=== PATIENT | male | born 1955 | race African-American/Black ===

== ENCOUNTER 2017-03-21 07:56 | Emergency (ER) | payer OTHER ==
[2017-03-21 09:10] LABS: #Eosinphils 0.1 thou/uL (0.0-0.7); #Lymphocytes 1.7 thou/uL (1.20-3.40); #Monocytes 0.4 thou/uL (0.11-0.59); #Neutrophils 4.4 thou/uL (1.40-6.50); %Basophils 0.8 % (0.0-1.0); %Eosinophils 1.8 % (0.0-10.0); %Lymphocytes 25.7 % (21.0-51.0); %Monocytes 5.3 % (0.0-10.0); %Neutrophils 66.4 % (42.0-75.0); Hemoglobin 16.2 g/dL (14.0-18.0); Mean Corpuscular Hemoglobin 26.5 pg (27.0-31.0); Mean Corpuscular Volume 80.3 fl (80.0-94.0); Platelet Count 302 thou/uL (130-400); RBC Distribution Width 12.9 % (11.5-14.5); Red Blood Cell (RBC) Count 6.12 mill/uL (4.70-6.10); White Blood Cell (WBC) Count 6.6 thou/uL (4.8-10.8)
--- NOTE | 2017-03-21 09:15 | ULT ---
RIGHT UPPER QUADRANT ULTRASOUND: Date: 03/21/17 PROVIDED CLINICAL HISTORY: Epigastric pain. FINDINGS: The liver demonstrates no mass or intrahepatic biliary ductal dilatation. The common duct is mildly p rominent, measuring about 8.0 mm. The gallbladder is not visualized, compatible with provided clinica l history of prior cholecystectomy. Visualized portions of the pancreas appear normal. The right kidn ey demonstrates no hydronephrosis or mass. IMPRESSION: Mildly prominent common duct, likely on the basis of post cholecystectomy status and patient age. Cor relation with laboratory values to exclude biliary obstructive change is recommended. POS: [facility]
[2017-03-21 09:20] LABS: ALT (SGPT) 29 U/L (8-55); AST (SGOT) 19 U/L (5-34); Albumin 4.1 g/dL (3.4-4.8); Alkaline Phosphatase 66 U/L (40-150); Anion Gap 13 mmol/L (10-20); BUN (Urea Nitrogen) 8 mg/dL (8.4-25.7); Bilirubin, Total 0.4 mg/dL (0.2-1.2); Calc. Creatinine Clearance 0 mL/min (70-130); Calcium 9.9 mg/dL (7.8-10.44); Carbon Dioxide 29 mmol/L (23-31); Chloride 99 mmol/L (98-107); Estimated GFR-MDRD 83; Globulin 3.7 g/dL (2.4-3.5); Glucose 204 mg/dL (80-115); Lipase 76 U/L (8-78); Protein, Total 7.8 g/dL (5.8-8.1); Sodium 137 mmol/L (136-145)
[2017-03-21 10:21] LABS: Bilirubin Negative (Negative); Blood, Urine Negative (Negative); Clarity CLEAR (Clear); Glucose, Urine (Dipstick) Negative (Negative); Leukocyte Negative (Negative); Nitrite Negative (Negative); Protein, Urine (Dipstick) 100 mg/dL (Neg-Trace); Specific Gravity, Urine 1.015 (1.002-1.036); Urobilinogen 0.2 mg/dL (0.2-1.0); pH, Urine 8.5 (5.0-9.0)
[2017-03-21 10:24] LABS: Bacteria/HPF None Seen HPF (None Seen); Hyaline Casts/LPF 0-3 HYALINE CAST LPF (0-3 Hyaline); Pathc Cast-AUWi Flag 0.27 (0-2.49); RBC/HPF 0-3 HPF (0-3); Squamous Epithelial None Seen HPF (0-3); WBC/HPF 0-3 HPF (0-3)
[2017-03-21] MEDS ORDERED: Lidocaine Viscous Sol 2% 15 ml UD Cup ONE (10:53)
[2017-03-21] MEDS ORDERED: Mag-Al 1200 mg/1200 mg/30 ML UDCUP ONE (10:53)
[2017-03-21] MEDS ORDERED: diphenhydrAMINE 25 MG CAP ONE (11:15)
[2017-03-21] MEDS ORDERED: Acetaminophen 325 MG TAB ONE (11:15)
== END 2017-03-21 11:29 | disposition home or self-care (01) ==
LOC: ERS 07:56
DX: K29.70 Gastritis, unspecified, without bleeding (principal); K20.9 Esophagitis, unspecified; I10 Essential (primary) hypertension; F32.9 Major depressive disorder, single episode, unspecified
CPT/HCPCS: 76705; 80053; 81003; 81015; 83690; 85025

== ENCOUNTER 2017-04-06 02:46 | Observation (INO) | payer MEDICARE, OTHER ==
[2017-04-06] MEDS ORDERED: Morphine 4 MG/ML Carpuject ONE ×2 (03:01→05:23)
[2017-04-06] MEDS ORDERED: Lidocaine Viscous Sol 2% 15 ml UD Cup ONE (03:02)
[2017-04-06] MEDS ORDERED: Pantoprazole 40 MG VIAL ONE (03:02)
[2017-04-06] MEDS ORDERED: Mag-Al 1200 mg/1200 mg/30 ML UDCUP ONE (03:02)
[2017-04-06 03:47] LABS: #Basophils 0.1 thou/uL (0.0-0.2); #Eosinphils 0.2 thou/uL (0.0-0.7); #Lymphocytes 3.3 thou/uL (1.20-3.40); #Monocytes 0.5 thou/uL (0.11-0.59); #Neutrophils 5.7 thou/uL (1.40-6.50); %Basophils 0.6 % (0.0-1.0); %Eosinophils 1.8 % (0.0-10.0); %Lymphocytes 33.7 % (21.0-51.0); %Monocytes 5.5 % (0.0-10.0); %Neutrophils 58.4 % (42.0-75.0); Hemoglobin 15.5 g/dL (14.0-18.0); Mean Corpuscular HGB CONC 34.3 g/dL (32.0-36.0); Mean Corpuscular Hemoglobin 26.9 pg (27.0-31.0); Mean Corpuscular Volume 78.4 fl (80.0-94.0); Mean Platelet Volume 8.1 fL (7.4-10.4); Platelet Count 342 thou/uL (130-400); RBC Distribution Width 12.7 % (11.5-14.5); Red Blood Cell (RBC) Count 5.76 mill/uL (4.70-6.10); White Blood Cell (WBC) Count 9.7 thou/uL (4.8-10.8)
[2017-04-06 04:08] LABS: ALT (SGPT) 54 U/L (8-55); AST (SGOT) 29 U/L (5-34); Albumin 4.1 g/dL (3.4-4.8); Alkaline Phosphatase 65 U/L (40-150); Anion Gap 12 mmol/L (10-20); BUN (Urea Nitrogen) 9 mg/dL (8.4-25.7); Bilirubin, Total 0.3 mg/dL (0.2-1.2); Calc. Creatinine Clearance 0 mL/min (70-130); Calcium 9.8 mg/dL (7.8-10.44); Carbon Dioxide 29 mmol/L (23-31); Chloride 101 mmol/L (98-107); Estimated GFR-MDRD Greater than 90; Globulin 3.6 g/dL (2.4-3.5); Glucose 165 mg/dL (80-115); Lipase 241 U/L (8-78); Potassium 3.8 mmol/L (3.5-5.1); Protein, Total 7.7 g/dL (5.8-8.1); Sodium 138 mmol/L (136-145)
[2017-04-06] MEDS ORDERED: Ondansetron HCl/PF 4 MG/2 ML Vial IVP PRN ×2 (06:10→18:41)
[2017-04-06] MEDS ORDERED: HYDROcodone/Acetaminophen 5/325 mg Tablet PO PRN ×2 (06:10)
[2017-04-06] MEDS ORDERED: Acetaminophen 325 MG TAB PO PRN (06:10)
[2017-04-06] MEDS ORDERED: Ondansetron ODT 4 MG TAB SL PRN (06:10)
[2017-04-06] MEDS ORDERED: Morphine 5 MG/ML SYRINGE SLOW IVP PRN ×2 (06:11→18:40)
[2017-04-06] MEDS: Sodium Chloride 0.9% 1,000 ML IV SCH ×3 (06:33→21:03)
[2017-04-06 06:36] VITALS: BMI 21.7
[2017-04-06] MEDS ORDERED: SOFOSBUVIR PO SCH (09:00)
[2017-04-06] MEDS ORDERED: LEDIPASVIR PO SCH (09:00)
[2017-04-06] MEDS ORDERED: Morphine 5 MG/ML SYRINGE SLOW IVP SCH (13:00)
--- NOTE | 2017-04-06 15:22 | HP ---
DATE OF ADMISSION: 04/06/2017 ADMITTING PHYSICIAN: Nils Turcios M.D. PRIMARY CARE PHYSICIAN: Unknown. CHIEF COMPLAINT: Abdominal pain. HISTORY OF PRESENT ILLNESS: The patient is a pleasant 62-year-old gentleman who presents to the [facility] department complaining of upper abdominal pain for approximately 2-3 weeks. The patient was se en here 03/21/2017 with the same complaint and he was sent home after given pain medications. He has seen his PCP and power operator before. The patient had an EGD performed approximately 4 months ago which was reportedly normal except for diagnosis of possible H. pylori. He has been on triple a ntibiotic therapy for the H. pylori. He denies diaphoresis, nausea, vomiting. He does report occasi onal feelings of early satiety. Denies diarrhea or bright red blood per rectum or constipation. PAST MEDICAL HISTORY: Significant for hypertension and possible pancreatitis in the past. REVIEW OF SYSTEMS: The following complete review of systems was negative, unless otherwise mentioned in the HPI or below: Constitutional: Weight loss or gain, sense of well-being, ability to conduct usual activities, exercise tolerance. Skin/Breast: Rash, itching, changes in hair growth or loss, n ail changes, breast lumps, tenderness, swelling, nipple discharge. Eyes: Vision, double vision, tea ring, blind spots, pain. ENT/Mouth: Headaches (location, time of onset, duration, precipitating fac tors), vertigo, lightheadedness, injury. Vision, double vision, tearing, blind spots, pain, nose blee ding, colds, obstruction, discharge, dental difficulties, gingival bleeding, dentures, neck stiffness , pain, tenderness, masses in thyroid or other areas. Cardiovascular: Precordial pain, substernal d istress, palpitations, syncope, dyspnea on exertion, orthopnea, nocturnal paroxysmal dyspnea, edema, cyanosis, hypertension, heart murmurs, varicosities, phlebitis, claudication. Respiratory: Pain, sh ortness of breath, wheezing, stridor, cough, hemoptysis, fever or night sweats. Gastrointestinal: P oor appetite, dysphagia, indigestion, abdominal pain, heartburn, eructation, nausea, vomiting, hemate mesis, jaundice, constipation, or diarrhea, abnormal stools (feng-colored, tarry, bloody, greasy, fou l smelling), flatulence, hemorrhoids, recent changes in bowel habits. Genitourinary: Urgency, frequ ency, dysuria, nocturia, hematuria, polyuria, oliguria, unusual (or change in) color of urine, stones , hesitancy, change in size of stream, dribbling, acute retention or incontinence, libido, potency. Musculoskeletal: Pain, swelling, redness or heat of muscles or joints, limitation, of motion, muscul ar weakness, atrophy, cramps. Neurologic/Psychiatric: Convulsions, paralyses, tremor, incoordinatio n, paresthesias, difficulties with memory of speech, sensory or motor disturbances, or muscular coord ination (ataxia, tremor), emotional problems, anxiety, depression, previous psychiatric care, unusual perceptions, hallucinations. Allergy/Immunologic: Skin rash, anemia, bleeding tendency, polydipsia, polyuria, intolerance to heat or cold. HOME MEDICATIONS: Include enalapril 20 mg every day, amoxicillin 500 mg 2 tabs b.i.d., Bentyl 10 mg t.i.d., Biaxin 500 mg 1 tab b.i.d. ALLERGIES: No known drug allergies. SOCIAL HISTORY: He is a nonsmoker, author, artist. No drugs or alcohol at this time. PHYSICAL EXAMINATION: VITAL SIGNS: Blood pressure 144/102, pulse 71, respirations 18, temperature 98.0. Pain 5/10 and sat ting 95% on room air. GENERAL: He is in no acute distress, pleasant, cooperative, coherent. HEENT: Normocephalic, atraumatic. Eyes: PERRL. Extraocular muscles intact. ENT: Ear exam normal , pharynx exam normal, tonsil exam normal, mouth exam normal. NECK: Trachea midline. No meningeal signs. No tenderness. Supple, full range of motion. CHEST: No rhonchi, no wheezing. Clear to auscultation. CARDIAC: Regular rate and rhythm. There is a grade 3/6 holosystolic murmur. ABDOMEN: Nontender, nondistended. Positive bowel sounds. EXTREMITIES: No clubbing, cyanosis or edema. NEUROLOGIC: Full range of motion of all extremities. Cranial nerves intact. No focal deficits. LABORATORY IMAGES: CBC shows a white count of 9.7, hemoglobin 15.5, hematocrit 45.1, platelets 342. Chem-7 shows sodium of 138, potassium 3.8, chloride 101, CO2 29, BUN 9, creatinine 0.97, glucose of 165, calcium 9.8, AST 29, ALT 54, albumin 4.1, lipase 241. The patient had an abdominal ultrasound p erformed 16 days ago which showed prominent common duct, likely on the basis of a post cholecystectom y. ASSESSMENT AND PLAN: 1. Acute pancreatitis. 2. Hypertension. PLAN: The patient will be admitted. At this time, he does not have nausea, vomiting. We will do cl ear liquids and advance as tolerated. Pain control as needed. IV fluid resuscitation. We will do S CD devices to prevent against DVT development.
[2017-04-06] MEDS: traMADol HCl 50 MG TAB PO PRN (15:43)
[2017-04-06] MEDS ORDERED: Mag-Al 1200 mg/1200 mg/30 ML UDCUP PO PRN (18:09)
[2017-04-06] MEDS ORDERED: Pantoprazole 40 MG VIAL IVP SCH ×2 (18:15→21:00)
[2017-04-06] MEDS: HYDROcodone/Acetaminophen 5/325 mg Tablet PO PRN (18:57)
[2017-04-07] MEDS: Sodium Chloride 0.9% 1,000 ML IV SCH ×3 (02:49→18:53)
[2017-04-07] MEDS: HYDROcodone/Acetaminophen 5/325 mg Tablet PO PRN ×4 (04:11→20:26)
[2017-04-07 05:02] LABS: #Basophils 0.1 thou/uL (0.0-0.2); #Eosinphils 0.1 thou/uL (0.0-0.7); #Lymphocytes 2.5 thou/uL (1.20-3.40); #Monocytes 0.5 thou/uL (0.11-0.59); #Neutrophils 4.2 thou/uL (1.40-6.50); %Basophils 0.8 % (0.0-1.0); %Eosinophils 1.8 % (0.0-10.0); %Lymphocytes 33.7 % (21.0-51.0); %Monocytes 6.5 % (0.0-10.0); %Neutrophils 57.1 % (42.0-75.0); Hemoglobin 14.1 g/dL (14.0-18.0); Mean Corpuscular HGB CONC 33.3 g/dL (32.0-36.0); Mean Corpuscular Hemoglobin 26.4 pg (27.0-31.0); Mean Corpuscular Volume 79.3 fl (80.0-94.0); Platelet Count 295 thou/uL (130-400); RBC Distribution Width 12.8 % (11.5-14.5); Red Blood Cell (RBC) Count 5.33 mill/uL (4.70-6.10); White Blood Cell (WBC) Count 7.3 thou/uL (4.8-10.8)
[2017-04-07 05:23] LABS: Anion Gap 10 mmol/L (10-20); BUN (Urea Nitrogen) 7 mg/dL (8.4-25.7); Calc. Creatinine Clearance 90 mL/min (70-130); Calcium 8.8 mg/dL (7.8-10.44); Carbon Dioxide 28 mmol/L (23-31); Chloride 106 mmol/L (98-107); Estimated GFR-MDRD Greater than 90; Glucose 105 mg/dL (80-115); Potassium 3.8 mmol/L (3.5-5.1); Sodium 140 mmol/L (136-145)
[2017-04-07] MEDS: Pantoprazole 40 MG VIAL IVP SCH ×2 (08:54→20:27)
--- NOTE | 2017-04-07 10:13 | PDOC.PN ---
- Subjective Encounter Start Date: 04/07/17 Encounter Start Time: 08:30 Subjective: continued abd discomfort with feelings of satiety - Objective Resuscitation Status: Resuscitation Status FULL:Full Resuscitation MAR Reviewed: Yes Vital Signs & Weight: Vital Signs (12 hours) Temp Pulse Resp BP BP Pulse Ox 04/07/17 08:53 125/69 04/07/17 08:00 98.0 F 55 L 18 125/69 99 04/07/17 04:00 97.9 F 57 L 16 137/80 97 04/06/17 23:32 98.2 F 60 14 122/72 97 Weight Admit Weight 164 lb 14.4 oz Weight 164 lb 14.4 oz I&O: 04/06/17 04/07/17 04/08/17 06:59 06:59 06:59 Intake Total 1736 Balance 1736 Result Diagrams: 04/07/17 04:36 04/07/17 04:36 Phys Exam - Physical Examination Constitutional: NAD HEENT: PERRLA, moist MMs, sclera anicteric Neck: supple, full ROM Respiratory: no wheezing, clear to auscultation bilateral Cardiovascular: RRR, no significant murmur Gastrointestinal: soft tender with palpation Musculoskeletal: no edema Neurological: non-focal, moves all 4 limbs Psychiatric: normal affect, A&O x 3 Skin: no rash Dx/Plan (1) Acute on chronic pancreatitis Code(s): K85.90 - ACUTE PANCREATITIS WITHOUT NECROSIS OR INFECTION, UNSP; K86.1 - OTHER CHRONIC PANCREATITIS Status: Acute (2) HTN (hypertension) Code(s): I10 - ESSENTIAL (PRIMARY) HYPERTENSION Status: Chronic - Plan cont current plan of care, plan discussed w/ family Obtained GI consult today. Abd CT pending, Pepcid added, abx for Arlen * .
--- NOTE | 2017-04-07 11:17 | CT ---
PRE AND POSTCONTRAST ENHANCED CT IMAGES OF ABDOMEN: Date: 04/07/17 HISTORY: Recurrent pancreatitis. TECHNIQUE: Pre and postcontrast enhanced CT images of abdomen obtained. Coronal reconstruction images performed. FINDINGS: The lung bases are unremarkable. No evidence of free intraperitoneal air is seen. The liver and spleen are unremarkable. Adrenal glands are unremarkable. Bilateral renal cortical cyst s are present. There is fat stranding and inflammatory change surrounding the pancreatic head and portions of the pa ncreatic body. This is compatible with changes of pancreatitis. No definite evidence of pancreatic ma sses seen. The portal veins, as well as superior mesenteric artery and superior mesenteric vein are unremarkable . The splenic artery and splenic vein are patent. IMPRESSION: Fat stranding surrounding the pancreatic head and portions of the pancreatic body. This is compatible with changes of pancreatitis. No evidence of pseudocysts or significant pancreatic necrosis is prese nt. POS: [facility]
--- NOTE | 2017-04-07 12:29 | CON ---
DATE OF CONSULTATION: 04/07/2017 GI INPATIENT CONSULTATION NOTE REQUESTING PHYSICIAN: Nils Turcios M.D. REASON FOR CONSULTATION: Abdominal pain and pancreatitis. HISTORY OF PRESENT ILLNESS: Mr. Sawnson is a very pleasant 62-year-old -[place] gentleman. He is a patient of Dr. Lyle for Gastroenterology. He was admitted to the hospital yesterday wit h acute exacerbation of some ongoing epigastric pain. He says he has been dealing with this for the past several weeks. There is not a lot of associated nausea, no vomiting. He does have some early s atiety. There is no change in bowel habits either diarrhea or constipation. There is no melena or h ematochezia. Really, just been dealing with the pain. He says his appetite is good, but whenever he eats, the pain is exacerbated, it remains in the epigastrium. He has undergone some recent evaluati on with Dr. Lyle within the past few months. He reports that he had an EGD and colonoscopy. On EGD, he says he was diagnosed with gastritis and H. pylori and on colonoscopy, he said he had two sm all polyps which were completely removed. I do not have those primary reports for my review at this time. He got started on triple therapy for H. pylori. It is unclear whether he is actually receivin g acid suppression or not, but he says he is in the middle of taking a course of amoxicillin and clar ithromycin. Notably, he is also being treated for hepatitis C concurrently. He says he has 2 months into a 12-week treatment course of Harvoni. Interestingly, he says that about 6 years ago in [place], he had an episode of pancreatitis. He says at that time, there was some concern for possible pancreatic malignancy. He underwent a cholecystec mary and may be other procedures at that time. In the end, it was decided he did not have pancreatic malignancy and he did not undergo Whipple surgery which had been suggested. In the meantime, he coby lly has not had much chronic gastrointestinal symptomatology until there is some more recent onset of abdominal pain. Note, he had an abdominal ultrasound here within the past couple of weeks, which sh owed normal appearing liver, absent gallbladder and common bile duct 8 mm, which is not surprising af ter a cholecystectomy. On presentation at this time, he does have a lipase elevation to 241, which i s mild, but elevated and his LFTs are normal. He has been hemodynamically stable and he is toleratin g clear liquids this morning. REVIEW OF SYSTEMS: Full review of systems including constitutional, head, eyes, ears, nose, throat, GI, , cardiovascular, respiratory, musculoskeletal, and neurologic systems is negative except as no jose in the HPI. PAST MEDICAL HISTORY: Hepatitis C, currently being treated with Harvoni, hypertension, cholecystecto my about 6 years ago, Helicobacter pylori recently diagnosed on EGD, currently being treated, colon p olyps, recently removed on colonoscopy. ALLERGIES: No known drug allergies. OUTPATIENT MEDICATIONS: Enalapril, amoxicillin, clarithromycin, Bentyl, Harvoni. SOCIAL HISTORY: No smoking, alcohol, or drug abuse. FAMILY HISTORY: Noncontributory. PHYSICAL EXAMINATION: VITAL SIGNS: Temperature 98.0, pulse 55, blood pressure 125/69, 99% oxygen saturation on room air. GENERAL: A 62-year-old gentleman sitting up in bed comfortably in no acute distress. MENTAL: Alert and fully oriented, pleasant, conversational, gives a detailed coherent history. SKIN: No jaundice, no rashes were palpable. EYES: No scleral icterus. Extraocular movements intact. ENT: Mucous membranes moist, no oral lesions. LYMPH: No submandibular or supraclavicular lymphadenopathy. THYROID: Nontender to palpation. HEART: Regular rate and rhythm. LUNGS: Clear to auscultation bilaterally. ABDOMEN: Bowel sounds are present, soft, some mild tenderness to palpation in the epigastrium, but n o guarding or rebound tenderness. No masses or organomegaly appreciated. EXTREMITIES: No peripheral edema. VESSELS: Radial pulses 2+ bilaterally. NEUROLOGIC: Cranial nerves II-XII intact bilaterally. No focal deficits. LABORATORY STUDIES: WBC 7.3, hemoglobin 14.1, platelets 295, sodium 140, potassium 3.8, BUN 7, creat inine 0.90, and glucose 105. LFTs normal with total bilirubin 0.3, alkaline phosphatase 65, AST 29, ALT 54, and albumin 4.1. UA negative. Lipase elevated at 241. IMAGING STUDIES: Recent abdominal ultrasound on 03/21/2017 showed absent gallbladder, mildly promine nt common bile duct of 8 mm, normal liver. The patient does not recall having any recent CT imaging. ASSESSMENT AND PLAN: 1. Epigastric pain, acute on chronic. 2. Mild pancreatitis, recurrent. The patient does indeed have a mild lipase elevation and his sympt omatology is somewhat suggestive of mild chronic pancreatitis with intermittent exacerbations. Clini vaibhav, he is very stable and all labs are favorable. There was this prior issue with the thought annamarie t he might have a pancreatic mass 6 years ago in [place], but obviously this did not represent pancre atic cancer at least at that time. I think given these recurrent episodes though, he should have leslie e better imaging of the pancreas. We will go ahead and order a CT of the abdomen, pancreatic protoco l to assess for structural abnormalities. Regarding this acute episode, again lab parameters and cli nical status are all very favorable. He is tolerating clear liquids. Diet could be advanced as hemanth rated after the CT. 3. Helicobacter pylori infection. This was evidently diagnosed on recent esophagogastroduodenoscopy . It is unclear whether he had been taking proton pump inhibitor along with these antibiotics. Wojosé miguel d recommend adding twice daily PPI while he finishes out his antibiotics. He should probably just st art all of this over for a 2 week course from this time. 4. Hepatitis C infection. The patient says he has 2 months into a planned 12-week treatment with Alberto rvoni. Note his LFTs are all normal. Harvoni needs to be continued without missing doses, so I do r ecommend that it would be given once daily while here. Note that Harvoni would not be expected to ca use or induce an episode of pancreatitis. Thank you for the consultation. We will see what the CT shows. Dr. Lyle is likely returning to [place].
[2017-04-07] MEDS ORDERED: ISOVUE-370 76%-LOCM 1 ML ONE (14:34)
[2017-04-07] MEDS: Famotidine 20 MG TAB PO SCH (20:25)
[2017-04-08] MEDS ORDERED: hydrALAZINE 20 MG/ML VIAL SLOW IVP PRN (00:07)
[2017-04-08] MEDS: traMADol HCl 50 MG TAB PO PRN (07:32)
[2017-04-08] MEDS: Pantoprazole 40 MG VIAL IVP SCH (09:14)
[2017-04-08] MEDS: Famotidine 20 MG TAB PO SCH (09:14)
[2017-04-08] MEDS: Sodium Chloride 0.9% 1,000 ML IV SCH (09:15)
[2017-04-08 09:55] LABS: ALT (SGPT) 47 U/L (8-55); AST (SGOT) 28 U/L (5-34); Alkaline Phosphatase 73 U/L (40-150); Anion Gap 13 mmol/L (10-20); BUN (Urea Nitrogen) 8 mg/dL (8.4-25.7); Bilirubin, Total 0.5 mg/dL (0.2-1.2); Calc. Creatinine Clearance 79 mL/min (70-130); Calcium 9.7 mg/dL (7.8-10.44); Carbon Dioxide 26 mmol/L (23-31); Chloride 100 mmol/L (98-107); Estimated GFR-MDRD 89; Globulin 3.7 g/dL (2.4-3.5); Glucose 215 mg/dL (80-115); Lipase 27 U/L (8-78); Potassium 3.6 mmol/L (3.5-5.1); Protein, Total 7.7 g/dL (5.8-8.1); Sodium 135 mmol/L (136-145)
[2017-04-08 12:38] VITALS: BP 164/98; TEMP 98.2
--- NOTE | 2017-04-08 21:11 | DIS ---
DATE OF ADMISSION: 04/06/2017 DATE OF DISCHARGE: 04/08/2017 PRIMARY CARE PHYSICIAN: Rodríguez Babin MD PRIMARY GED PREPARATION TEACHER: Mai Lyle M.D. CONSULTATIONS: Gastroenterology, Dr. Martin De La Torre. DISCHARGE DIAGNOSES: 1. Acute pancreatitis. 2. History of pancreatitis. 3. History of hepatitis C, currently on treatment with Harvoni. 4. Hypertension. DISCHARGE MEDICATIONS: Resume home medications as previously and now enalapril 20 mg daily and Harvo ni 1 tablet daily and tramadol 50 mg q.i.d. p.r.n., Protonix 40 mg p.o. b.i.d. and resume home medica tions of clarithromycin 500 mg p.o. b.i.d. for 2 weeks and amoxicillin 1000 mg p.o. b.i.d. for 2 week s. Please note he was given prescriptions for Protonix, clarithromycin and amoxicillin all of are ag ain for 2 weeks as it was unclear if he was taking Protonix with his antibiotics prior to admission. PROCEDURES DONE IN THE HOSPITAL: Include CT scan of the abdomen. ADMISSION HISTORY: Mr. Swanson is a pleasant 62-year-old male with known history of chronic pancreat itis as well as hepatitis C on Harvoni who presented to the emergency room with complaints of abdomin al pain. Upon presentation, his lipase was 241 and he was admitted with a presumptive diagnosis of a cute pancreatitis. Please see admission history for further details. HOSPITAL COURSE: Gastroenterology was consulted and Dr. De La Torre saw the patient. He recommended gettin g a CT scan of his abdomen, which was done which showed fat stranding surrounding the pancreatic head and portions of the pancreatic body compatible with pancreatitis. The patient had improvement in hi s symptoms with IV fluids and n.p.o. status. By the time of discharge, his lipase was improved from 241 to 27 and he is able to tolerate oral food. Dr. De La Torre saw the patient and recommended that he restart his treatment for H. pylori, which was diagn osed as an outpatient. He was given prescription for all of the treatment. Medications to finish 2 weeks of treatment. He is instructed to follow up with his primary clinical data manager Dr. Lyle as an outpatient. He was seen and examined prior to discharge. PHYSICAL EXAMINATION: Include, VITAL SIGNS: Temperature 98.2, pulse of 64, respirations 16, saturating 98% on room air, blood press ure 164/98. GENERAL: No acute distress, sitting up in bed. CHEST: Clear to auscultation. CARDIOVASCULAR: Rate and rhythm is regular. ABDOMEN: Soft, nontender, nondistended. LABORATORY EXAMINATION: Serum chemistries unremarkable except for blood sugar of 215, serum chemistr ies are unremarkable. He will follow up with his primary care physician in 5 to 7 days and his clinical data manager in 2 to 3 days for acute pancreatitis followup.
--- NOTE | 2017-04-13 17:28 | EKG ---
Test Reason : Blood Pressure : / mmHG Vent. Rate : 066 BPM Atrial Rate : 066 BPM P-R Int : 166 ms QRS Dur : 112 ms QT Int : 414 ms P-R-T Axes : 081 -47 027 degrees QTc Int : 434 ms Normal sinus rhythm with sinus arrhythmia Incomplete right bundle branch block Left anterior fascicular block Moderate voltage criteria for LVH, may be normal variant Cannot rule out Septal infarct , age undetermined Left axis deviation Abnormal ECG Confirmed by YAYA ALFRED, QUYNH ([id number]), acquisition editor CROW BALLESTEROS ([id number]) on 04/13/2017 5:28:23 PM Referred By: Confirmed By:QUYNH JAVIER MD
== END 2017-04-08 13:33 | disposition home or self-care (01) ==
LOC: ERS 02:46 → 2SW 05:49
PROVIDERS: ADMIT Hospitalist; ATTEND Hospitalist
DX: K85.90 Acute pancreatitis without necrosis or infection, unspecified (principal); K86.1 Other chronic pancreatitis; B19.20 Unspecified viral hepatitis C without hepatic coma; I10 Essential (primary) hypertension; Z79.2 Long term (current) use of antibiotics; Z79.899 Other long term (current) drug therapy; Z90.49 Acquired absence of other specified parts of digestive tract
CPT/HCPCS: 74170; 80048; 80053 ×2; 83690 ×2; 85025 ×2; 93005; 96361 ×2; 96374; 96375 ×3; 96376 ×4; 99285; G0378 ×2; 36415; J2270; A4216; C9113; J0360; J2405